=== PATIENT | male | born 1955 | race Caucasian/White ===

== ENCOUNTER 2017-12-18 03:40 | Emergency (ER) | payer SELFPAY, MEDICAID, MEDICARE | END 2017-12-18 04:26 | disposition left against medical advice (07) | LOC: E/R 03:40 | DX: Z53.21 Procedure and treatment not carried out due to patient leaving prior to being seen by health care provider (principal) ==

== ENCOUNTER 2018-01-20 12:01 | Emergency (ER) | payer MEDICARE, MEDICAID ==
[2018-01-20] MEDS: SOD CHLORIDE 0.9% 1,000 ML IV (13:01)
[2018-01-20] MEDS: ONDANSETRON 4 MG INJ IV (13:01)
[2018-01-20] MEDS: morphine 2 MG INJ IV (13:02)
[2018-01-20 13:08] LABS: ADD MAN DIFF? NO
[2018-01-20 13:10] LABS: WHITE BLOOD COUNT 17.5 10^3/ul (4.8-10.8)
[2018-01-20 13:10] LABS: ABNORMAL IP MESSAGE 1; BASOPHILS % 0.2 % (0.0-2.0); EOSINOPHILS % 0.1 % (0.0-7.0); HEMATOCRIT 51.4 % (42.0-52.0); HEMOGLOBIN 17.5 g/dl (14.0-18.0); LYMPHOCYTES # 0.5 10^3/ul (0.8-2.9); MEAN CORPUSCULAR HEMOGLOBIN 30.4 pg (29.0-33.0); MEAN CORPUSCULAR VOLUME 89.2 fl (82.0-101.0); MEAN PLATELET VOLUME 9.9 fl (7.4-10.4); MONOCYTE # 0.8 10^3/ul (0.3-0.9); MONOCYTES % 4.4 % (0.0-11.0); NEUTROPHILS % 91.8 % (39.0-77.0); PLATELET COUNT 215 10^3/UL (140-415); POSITIVE DIFF @See below; RED BLOOD COUNT 5.76 10^6/ul (4.70-6.10); RED CELL DISTRIBUTION WIDTH 12.9 % (11.5-14.5)
[2018-01-20 13:26] LABS: INR 0.92; PROTIME 12.4 Sec (11.9-14.9)
[2018-01-20 13:28] LABS: ALANINE AMINOTRANSFERASE 35 IU/L (13-69); ALBUMIN 4.5 g/dl (3.3-4.9); ALBUMIN/GLOBULIN RATIO 1.45; ALKALINE PHOSPHATASE 94 IU/L (42-121); ANION GAP 22 (8-16); ASPARTATE AMINO TRANSFERASE 24 IU/L (15-46); BILIRUBIN,INDIRECT 0.9 mg/dl (0-1.1); BILIRUBIN,TOTAL 0.9 mg/dl (0.2-1.3); BLOOD UREA NITROGEN 16 mg/dl (7-20); CALCIUM 9.9 mg/dl (8.4-10.2); CARBON DIOXIDE 19 mmol/L (21-31); CHLORIDE 110 mmol/L (97-110); CREATININE 1.14 mg/dl (0.61-1.24); GLUCOSE 170 mg/dl (70-220); LIPASE 50 U/L (23-300); POTASSIUM 4.1 mmol/L (3.5-5.1); SODIUM 147 mmol/L (135-144); TOTAL PROTEIN 7.6 g/dl (6.1-8.1)
[2018-01-20 13:42] LABS: TROPONIN-I < 0.012 ng/ml (0.00-0.12)
[2018-01-20] MEDS: KETOROLAC 15 MG INJ IV (14:27)
[2018-01-20 14:28] LABS: ADD UMIC YES; UR ASCORBIC ACID NEGATIVE (NEGATIVE); UR BILIRUBIN (Dip) NEGATIVE (NEGATIVE); UR BLOOD (Dip) 1+ mg/dL (NEGATIVE); UR CLARITY CLEAR (CLEAR); UR COLOR STRAW (YELLOW); UR GLUCOSE (Dip) NEGATIVE (NEGATIVE); UR KETONES (Dip) NEGATIVE (NEGATIVE); UR LEUKOCYTE ESTERASE (Dip) NEGATIVE Leu/ul (NEGATIVE); UR NITRITE (Dip) NEGATIVE (NEGATIVE); UR RBC 0 /HPF (0-5); UR SPECIFIC GRAVITY (Dip) 1.005 (1.003-1.030); UR TOTAL PROTEIN (Dip) NEGATIVE (NEGATIVE); UR UROBILINOGEN (Dip) NEGATIVE (NEGATIVE); UR WBC 0 /HPF (0-5)
== END 2018-01-20 14:57 | disposition home or self-care (01) ==
LOC: E/R 12:01
DX: G89.4 Chronic pain syndrome (principal); R19.7 Diarrhea, unspecified; E86.0 Dehydration; I10 Essential (primary) hypertension; R07.9 Chest pain, unspecified
CPT/HCPCS: 36415; 74176; 80053; 81001; 83690; 84484; 85025; 85610; 93005; 96374; 96375; 99285-25

== ENCOUNTER 2018-07-10 13:35 | Emergency (ER) | payer MEDICARE, MEDICAID ==
[2018-07-10] MEDS ORDERED: morphine 4 MG/ML VIAL IV (14:10)
[2018-07-10] MEDS: ONDANSETRON 4 MG INJ IV (14:36)
[2018-07-10] MEDS: KETOROLAC 15 MG INJ IV (14:37)
[2018-07-10] MEDS: SOD CHLORIDE 0.9% 1,000 ML IV (14:38)
[2018-07-10 14:50] LABS: ADD MAN DIFF? NO
[2018-07-10 14:53] LABS: BASOPHIL # 0.1 10^3/ul (0.0-0.1); BASOPHILS % 0.3 % (0.0-2.0); EOSINOPHILS # 0.1 10^3/ul (0.0-0.5); EOSINOPHILS % 0.4 % (0.0-7.0); HEMATOCRIT 52.9 % (42.0-52.0); HEMOGLOBIN 17.8 g/dl (14.0-18.0); LYMPHOCYTES # 1.1 10^3/ul (0.8-2.9); LYMPHOCYTES % 5.6 % (15.0-51.0); MEAN CORPUSCULAR HEMOGLOBIN 30.3 pg (29.0-33.0); MEAN CORPUSCULAR HGB CONC 33.6 g/dl (32.0-37.0); MEAN PLATELET VOLUME 9.2 fl (7.4-10.4); MONOCYTE # 1.1 10^3/ul (0.3-0.9); MONOCYTES % 5.9 % (0.0-11.0); NEUTROPHIL # 16.4 10^3/ul (1.6-7.5); NEUTROPHILS % 86.7 % (39.0-77.0); PLATELET COUNT 189 10^3/UL (140-415); RED BLOOD COUNT 5.88 10^6/ul (4.70-6.10); RED CELL DISTRIBUTION WIDTH 13.6 % (11.5-14.5)
[2018-07-10 14:53] LABS: WHITE BLOOD COUNT 18.9 10^3/ul (4.8-10.8)
[2018-07-10 15:24] LABS: ALANINE AMINOTRANSFERASE 47 IU/L (13-69); ALBUMIN 4.2 g/dl (3.3-4.9); ALKALINE PHOSPHATASE 75 IU/L (42-121); ANION GAP 14 (8-16); ASPARTATE AMINO TRANSFERASE 33 IU/L (15-46); BLOOD UREA NITROGEN 23 mg/dl (7-20); CALCIUM 9.2 mg/dl (8.4-10.2); CARBON DIOXIDE 21 mmol/L (21-31); CHLORIDE 112 mmol/L (97-110); CREATININE 0.97 mg/dl (0.61-1.24); GLUCOSE 117 mg/dl (70-220); LIPASE 68 U/L (23-300); POTASSIUM 4.4 mmol/L (3.5-5.1); SODIUM 143 mmol/L (135-144)
[2018-07-10 15:41] LABS: ADD UMIC NO; UR ASCORBIC ACID NEGATIVE (NEGATIVE); UR BILIRUBIN (Dip) NEGATIVE (NEGATIVE); UR BLOOD (Dip) NEGATIVE (NEGATIVE); UR CLARITY CLEAR (CLEAR); UR COLOR YELLOW (YELLOW); UR GLUCOSE (Dip) NEGATIVE (NEGATIVE); UR KETONES (Dip) NEGATIVE (NEGATIVE); UR LEUKOCYTE ESTERASE (Dip) NEGATIVE Leu/ul (NEGATIVE); UR NITRITE (Dip) NEGATIVE (NEGATIVE); UR SPECIFIC GRAVITY (Dip) 1.021 (1.003-1.030); UR TOTAL PROTEIN (Dip) NEGATIVE (NEGATIVE); UR UROBILINOGEN (Dip) NEGATIVE (NEGATIVE)
== END 2018-07-10 16:05 | disposition home or self-care (01) ==
LOC: FTE 13:35
DX: R11.2 Nausea with vomiting, unspecified (principal); I10 Essential (primary) hypertension
CPT/HCPCS: 36415; 71045; 74176; 80053; 81003; 83690; 85025; 87400; 96361; 96374; 96375; 99285-25

== ENCOUNTER 2019-01-05 12:06 | Inpatient (IN) | payer OTHER, MEDICAID, MEDICARE ==
[2019-01-05 12:38] LABS: ADD MAN DIFF? NO
[2019-01-05] MEDS: morphine 4 MG/ML VIAL IV (12:42)
[2019-01-05] MEDS: ONDANSETRON 4 MG INJ IV ×2 (12:42→14:29)
[2019-01-05] MEDS: SOD CHLORIDE 0.9% 1,000 ML IV ×2 (12:42→14:29)
[2019-01-05 12:44] LABS: WHITE BLOOD COUNT 14.4 10^3/ul (4.8-10.8)
[2019-01-05 12:44] LABS: ABNORMAL IP MESSAGE 1; BASOPHIL # 0.1 10^3/ul (0.0-0.1); BASOPHILS % 0.3 % (0.0-2.0); EOSINOPHILS % 0.2 % (0.0-7.0); HEMATOCRIT 48.7 % (42.0-52.0); HEMOGLOBIN 16.6 g/dl (14.0-18.0); LYMPHOCYTES # 0.6 10^3/ul (0.8-2.9); LYMPHOCYTES % 4.1 % (15.0-51.0); MEAN CORPUSCULAR HEMOGLOBIN 30.6 pg (29.0-33.0); MEAN CORPUSCULAR HGB CONC 34.1 g/dl (32.0-37.0); MEAN CORPUSCULAR VOLUME 89.9 fl (82.0-101.0); MEAN PLATELET VOLUME 9.7 fl (7.4-10.4); MONOCYTE # 0.5 10^3/ul (0.3-0.9); MONOCYTES % 3.5 % (0.0-11.0); NEUTROPHIL # 13.1 10^3/ul (1.6-7.5); NEUTROPHILS % 91.3 % (39.0-77.0); PLATELET COUNT 203 10^3/UL (140-415); POSITIVE DIFF @See below; RED BLOOD COUNT 5.42 10^6/ul (4.70-6.10); RED CELL DISTRIBUTION WIDTH 12.4 % (11.5-14.5)
[2019-01-05 13:07] LABS: ALANINE AMINOTRANSFERASE 32 IU/L (13-69); ALBUMIN 4.2 g/dl (3.3-4.9); ALBUMIN/GLOBULIN RATIO 1.35; ALKALINE PHOSPHATASE 90 IU/L (42-121); AMYLASE 46 U/L (11-123); ANION GAP 15 (5-13); ASPARTATE AMINO TRANSFERASE 33 IU/L (15-46); BILIRUBIN,INDIRECT 0.8 mg/dl (0-1.1); BILIRUBIN,TOTAL 0.8 mg/dl (0.2-1.3); BLOOD UREA NITROGEN 17 mg/dl (7-20); CALCIUM 9.5 mg/dl (8.4-10.2); CARBON DIOXIDE 21 mmol/L (21-31); CHLORIDE 106 mmol/L (97-110); CREATININE 1.02 mg/dl (0.61-1.24); Estimated GFR > 60 mL/min (>60); GLUCOSE 182 mg/dl (70-220); LIPASE 35 U/L (23-300); POTASSIUM 4.2 mmol/L (3.5-5.1); SODIUM 142 mmol/L (135-144); TOTAL PROTEIN 7.3 g/dl (6.1-8.1)
[2019-01-05 13:08] LABS: INR 0.89; PROTIME 12.2 Sec (11.9-14.9)
[2019-01-05 13:09] LABS: PARTIAL THROMBOPLASTIN TIME 29.7 Sec (23.0-35.0)
[2019-01-05 13:19] LABS: TROPONIN-I < 0.012 ng/ml (0.000-0.120)
[2019-01-05] MEDS: HYDROmorphONE 1 MG/ML SYG IV (14:29)
[2019-01-05] MEDS: IOHEXOL 300MG/ML 150 ML BTL (15:15)
[2019-01-05] MEDS: SOD CHLORIDE 0.9% 100 ML (15:15)
[2019-01-05] MEDS: PROMETHAZINE 25 MG TAB PO (15:16)
[2019-01-05] MEDS ORDERED: ONDANSETRON 4 MG INJ IV (16:00)
[2019-01-05] MEDS: DICYCLOMINE 10 MG CAP PO (16:13)
[2019-01-05] MEDS: LIDOCAINE 2% VISC 15 ML CUP PO (16:20)
[2019-01-05] MEDS ORDERED: NACL 0.9% 3 ML SYG IV (17:30)
[2019-01-05] MEDS ORDERED: ACETAMINOPHEN 650 MG SUPP PR (17:30)
[2019-01-05] MEDS ORDERED: NA PHOSPHATE/BIPHOS 133 ML ENEMA PR (17:30)
[2019-01-05] MEDS ORDERED: DOCUSATE SODIUM 100 MG CAP PO (17:30)
[2019-01-05] MEDS ORDERED: SUMATRIPTAN 50 MG TAB PO (17:30)
[2019-01-05] MEDS: LACTATED RINGER'S 500 ML IV (19:02)
[2019-01-05] MEDS: LACTATED RINGER'S 1,000 ML IV (19:05)
[2019-01-05] MEDS: LISINOPRIL 5 MG TAB PO (21:35)
[2019-01-05] MEDS: HEPARIN 5,000 UNIT/1 ML VIAL SC (21:36)
[2019-01-05] MEDS: FAMOTIDINE 20 MG INJ IV (21:36)
[2019-01-05] MEDS: morphine (ER) 15 MG TAB PO (21:37)
[2019-01-05] MEDS: GABAPENTIN 300 MG CAP PO (21:37)
[2019-01-05] MEDS: morphine 2 MG INJ IV (23:21)
[2019-01-06] MEDS: ONDANSETRON 4 MG INJ IV (02:39)
[2019-01-06] MEDS: morphine 2 MG INJ IV ×2 (05:15→13:19)
[2019-01-06] MEDS: LACTATED RINGER'S 1,000 ML IV ×2 (05:18→18:23)
[2019-01-06 06:23] LABS: ADD MAN DIFF? NO
[2019-01-06 06:30] LABS: BASOPHILS % 0.3 % (0.0-2.0); EOSINOPHILS # 0.2 10^3/ul (0.0-0.5); EOSINOPHILS % 1.5 % (0.0-7.0); HEMATOCRIT 46.8 % (42.0-52.0); HEMOGLOBIN 15.4 g/dl (14.0-18.0); LYMPHOCYTES # 1.6 10^3/ul (0.8-2.9); LYMPHOCYTES % 13.6 % (15.0-51.0); MEAN CORPUSCULAR HEMOGLOBIN 30.7 pg (29.0-33.0); MEAN CORPUSCULAR HGB CONC 32.9 g/dl (32.0-37.0); MEAN CORPUSCULAR VOLUME 93.4 fl (82.0-101.0); MEAN PLATELET VOLUME 9.7 fl (7.4-10.4); MONOCYTE # 0.9 10^3/ul (0.3-0.9); MONOCYTES % 7.6 % (0.0-11.0); NEUTROPHIL # 8.8 10^3/ul (1.6-7.5); NEUTROPHILS % 76.4 % (39.0-77.0); PLATELET COUNT 171 10^3/UL (140-415); RED BLOOD COUNT 5.01 10^6/ul (4.70-6.10); RED CELL DISTRIBUTION WIDTH 12.6 % (11.5-14.5)
[2019-01-06 06:30] LABS: WHITE BLOOD COUNT 11.5 10^3/ul (4.8-10.8)
[2019-01-06 06:46] LABS: ADD UMIC NO; UR ASCORBIC ACID NEGATIVE (NEGATIVE); UR BILIRUBIN (Dip) NEGATIVE (NEGATIVE); UR BLOOD (Dip) NEGATIVE (NEGATIVE); UR CLARITY CLEAR (CLEAR); UR COLOR YELLOW (YELLOW); UR GLUCOSE (Dip) NEGATIVE (NEGATIVE); UR KETONES (Dip) NEGATIVE (NEGATIVE); UR LEUKOCYTE ESTERASE (Dip) NEGATIVE Leu/ul (NEGATIVE); UR NITRITE (Dip) NEGATIVE (NEGATIVE); UR SPECIFIC GRAVITY (Dip) 1.026 (1.003-1.030); UR TOTAL PROTEIN (Dip) NEGATIVE (NEGATIVE); UR UROBILINOGEN (Dip) NEGATIVE (NEGATIVE)
[2019-01-06 06:57] LABS: ALANINE AMINOTRANSFERASE 30 IU/L (13-69); ALBUMIN 3.4 g/dl (3.3-4.9); ALBUMIN/GLOBULIN RATIO 1.21; ALKALINE PHOSPHATASE 64 IU/L (42-121); ANION GAP 10 (5-13); ASPARTATE AMINO TRANSFERASE 28 IU/L (15-46); BILIRUBIN,INDIRECT 0.9 mg/dl (0-1.1); BILIRUBIN,TOTAL 0.9 mg/dl (0.2-1.3); BLOOD UREA NITROGEN 14 mg/dl (7-20); CALCIUM 8.9 mg/dl (8.4-10.2); CARBON DIOXIDE 23 mmol/L (21-31); CHLORIDE 108 mmol/L (97-110); CREATININE 1.06 mg/dl (0.61-1.24); Estimated GFR > 60 mL/min (>60); GLUCOSE 86 mg/dl (70-220); POTASSIUM 4.2 mmol/L (3.5-5.1); SODIUM 141 mmol/L (135-144); TOTAL PROTEIN 6.2 g/dl (6.1-8.1)
[2019-01-06 07:41] LABS: HEMOGLOBIN A1C 5.2 % (0-5.9)
[2019-01-06] MEDS: morphine (ER) 15 MG TAB PO ×2 (09:31→21:11)
[2019-01-06] MEDS: GABAPENTIN 300 MG CAP PO ×3 (09:31→21:10)
[2019-01-06] MEDS: LISINOPRIL 5 MG TAB PO ×2 (09:32→21:10)
[2019-01-06] MEDS: RISPERIDONE 1 MG TAB PO (09:32)
[2019-01-06] MEDS: FAMOTIDINE 20 MG INJ IV ×2 (09:33→21:11)
[2019-01-06] MEDS: HEPARIN 5,000 UNIT/1 ML VIAL SC ×2 (09:37→21:14)
[2019-01-06] MEDS: clonAZEPAM 0.5 MG TAB PO (10:21)
[2019-01-06] MEDS ORDERED: VANCOMYCIN IV PER PHARMACY XX (17:00)
[2019-01-06] MEDS: VANCOMYCIN HCL 1.5 GM in SOD CHLORIDE 0.9% 250 ML IVPB (21:16)
[2019-01-07] MEDS: morphine 2 MG INJ IV ×4 (01:30→22:25)
[2019-01-07] MEDS: VANCOMYCIN 750 MG (PMX) 250 ML IVPB (05:47)
[2019-01-07] MEDS: LACTATED RINGER'S 1,000 ML IV ×2 (08:31→11:26)
[2019-01-07] MEDS: RISPERIDONE 1 MG TAB PO (08:56)
[2019-01-07] MEDS: LISINOPRIL 5 MG TAB PO ×2 (08:56→20:39)
[2019-01-07] MEDS: GABAPENTIN 300 MG CAP PO ×3 (08:56→20:38)
[2019-01-07] MEDS: FAMOTIDINE 20 MG INJ IV (08:56)
[2019-01-07] MEDS: morphine (ER) 15 MG TAB PO ×2 (08:57→20:38)
[2019-01-07] MEDS: HEPARIN 5,000 UNIT/1 ML VIAL SC ×2 (09:02→20:47)
[2019-01-07] MEDS: clonAZEPAM 0.5 MG TAB PO ×2 (09:10→20:38)
[2019-01-07] MEDS: LACTULOSE 30ML CUP PO (13:10)
[2019-01-07] MEDS: NA PHOSPHATE/BIPHOS 133 ML ENEMA PR (13:10)
[2019-01-07] MEDS: MAGNESIUM CITRATE 300 ML BTL PO (15:28)
[2019-01-07] MEDS: FAMOTIDINE 20 MG TAB PO (20:38)
[2019-01-08] MEDS: LACTATED RINGER'S 1,000 ML IV (00:26)
[2019-01-08] MEDS: morphine 2 MG INJ IV ×3 (02:19→10:48)
[2019-01-08] MEDS: GABAPENTIN 300 MG CAP PO ×2 (09:32→13:41)
[2019-01-08] MEDS: morphine (ER) 15 MG TAB PO (09:32)
[2019-01-08] MEDS: FAMOTIDINE 20 MG TAB PO (09:32)
[2019-01-08] MEDS: RISPERIDONE 1 MG TAB PO (09:32)
[2019-01-08] MEDS: LISINOPRIL 5 MG TAB PO (09:33)
[2019-01-08] MEDS: HEPARIN 5,000 UNIT/1 ML VIAL SC (09:42)
[2019-01-08] MEDS: clonAZEPAM 0.5 MG TAB PO (09:43)
[2019-01-08] MEDS: LEVOFLOXACIN 500 MG TAB PO (10:47)
[2019-01-09] MEDS ORDERED: LEVOFLOXACIN 500 MG TAB PO (06:00)
== END 2019-01-08 15:30 | disposition home or self-care (01) | DRG 389 ==
LOC: E/R 12:06 → 2NE 15:59
DX: K56.7 Ileus, unspecified (principal); N39.0 Urinary tract infection, site not specified; B96.4 Proteus (mirabilis) (morganii) as the cause of diseases classified elsewhere; G89.4 Chronic pain syndrome; N40.0 Benign prostatic hyperplasia without lower urinary tract symptoms; I49.5 Sick sinus syndrome; I10 Essential (primary) hypertension
CPT/HCPCS: 74018; 74177; 80053; 81003; 82150; 83036; 83690; 84484; 85025; 85610; 85730; 87040-91; 87086; 93005; 96361; 96374; 96375; 96376; 99285-25; G0378